=== PATIENT | female | born 1975 | race Caucasian/White ===

== ENCOUNTER 2017-12-14 09:25 | Outpatient (REF) | payer BC, SELFPAY ==
[2017-12-14 21:07] LABS: Bacteria Moderate HPF (Negative); Epithelial Cells Moderate HPF (Negative); RBC Negative (0-2)
[2017-12-14 21:08] LABS: C & S Indicated? C&S Done As Ordered; Casts Negative LPF (Negative); Crystals Moderate Amorphous HPF (Negative); Mucus Moderate (Negative)
== END 2017-12-14 09:26 ==
LOC: NCHCN 09:25
PROVIDERS: PCP Nurse Practitioner Family; Visit Provider Nurse Practitioner Family
DX: R31.9 Hematuria, unspecified (principal)
CPT/HCPCS: 81015; 87086

== ENCOUNTER 2018-12-27 08:49 | Outpatient (REF) | payer BC, SELFPAY ==
[2018-12-27 20:50] LABS: COMMENT (LAB VIEW ONLY) 187.71 mg/dL; Microalb ug/mg Crea 23.4 ug/mg Cr
[2018-12-27 20:53] LABS: ALT 28 U/L (14-59); AST 17 U/L (15-37); Albumin 3.2 g/dL (3.4-5.0); Alkaline Phosphatase 95 U/L (46-116); Anion Gap 10.1 mmol/L (3-11); BUN 13 mg/dL (7-18); Bilirubin, Total 0.2 mg/dL (0.2-1.0); CO2 25.9 mmol/L (21.0-32.0); CREATININE 0.65 mg/dL (0.55-1.02); Calcium 8.7 mg/dL (8.5-10.1); Calculated LDL 85 mg/dL; Chloride 103 mmol/L (98-107); Cholesterol 137 mg/dL (50-200); Glucose 82 mg/dL (70-100); HDL Cholesterol 37 mg/dL (40-60); Potassium 4.1 mmol/L (3.5-5.1); Sodium 139 mmol/L (136-145); TSH 3.28 uIU/mL (0.36-3.74); Total Protein 6.9 g/dL (6.4-8.2); Triglyceride 75 mg/dL (30-150)
== END 2018-12-27 09:09 ==
LOC: NCHCN 08:49
PROVIDERS: PCP Nurse Practitioner Family; Visit Provider Nurse Practitioner Family
DX: E11.9 Type 2 diabetes mellitus without complications (principal); E78.5 Hyperlipidemia, unspecified; R80.9 Proteinuria, unspecified; N64.4 Mastodynia; E66.9 Obesity, unspecified; Z13.29 Encounter for screening for other suspected endocrine disorder
CPT/HCPCS: 80053; 80061; 82043; 82570; 84443

== ENCOUNTER 2019-08-08 21:06 | Outpatient (REF) | payer BC, SELFPAY | END 2019-08-08 21:26 | LOC: NCHCN 21:06 | PROVIDERS: PCP Nurse Practitioner Family; Visit Provider Nurse Practitioner Family | DX: N39.0 Urinary tract infection, site not specified (principal) | CPT/HCPCS: 87077; 87086; 87186 ==

== ENCOUNTER 2019-12-29 14:27 | Outpatient (REF) | payer BC, SELFPAY ==
[2019-12-29 21:27] LABS: Microalb ug/mg Crea 16.5 ug/mg Cr
[2019-12-29 21:33] LABS: Anion Gap 9.3 mmol/L (3-11); BUN 13 mg/dL (7-18); CO2 27.7 mmol/L (21.0-32.0); CREATININE 0.55 mg/dL (0.55-1.02); Chloride 100 mmol/L (98-107); Glucose 79 mg/dL (74-106); Potassium 4.4 mmol/L (3.5-5.1); Sodium 137 mmol/L (136-145); Vitamin B12 298 pg/mL (193-986)
== END 2019-12-29 14:47 ==
LOC: NCHCN 14:27
PROVIDERS: PCP Nurse Practitioner Family; Visit Provider Nurse Practitioner Family
DX: E11.9 Type 2 diabetes mellitus without complications (principal); R80.9 Proteinuria, unspecified; Z51.81 Encounter for therapeutic drug level monitoring
CPT/HCPCS: 80048; 82043; 82570; 82607

== ENCOUNTER 2020-06-26 14:21 | Outpatient (REF) | payer BC, SELFPAY ==
[2020-06-26 15:40] LABS: Anion Gap 11.3 mmol/L (3-11); BUN 14 mg/dL (7-18); CO2 24.7 mmol/L (21.0-32.0); CREATININE 0.6 mg/dL (0.55-1.02); Chloride 102 mmol/L (98-107); Ferritin 13 ng/mL (8-252); Glucose 61 mg/dL (74-106); Potassium 4.2 mmol/L (3.5-5.1); Sodium 138 mmol/L (136-145)
[2020-06-26 15:50] LABS: HCT 34.5 % (36.0-46.0); HGB 10.4 g/dL (11.2-15.7); MCH 21.8 pg (27.0-33.0); MCHC 30.1 % (32.0-36.0); MCV 72.3 fL (80-95); MPV 9.3 fL (8.0-11.0); Platelet Count 421 10^3/uL (130-400); RBC 4.77 10^6/uL (3.93-5.22); RDW 18.8 % (11.7-14.6); RDW-SD 49.2 fL; WBC 8.87 10^3/uL (4.4-10.8)
== END 2020-06-26 14:22 | disposition home or self-care (01) ==
LOC: NCHCN 14:21
PROVIDERS: PCP Nurse Practitioner Family; Visit Provider Nurse Practitioner Family
DX: E11.9 Type 2 diabetes mellitus without complications (principal); R00.0 Tachycardia, unspecified; G47.33 Obstructive sleep apnea (adult) (pediatric); G25.81 Restless legs syndrome
CPT/HCPCS: 80048; 85027; 82728

== ENCOUNTER 2020-08-13 07:52 | Outpatient (REF) | payer BC, SELFPAY ==
[2020-08-13 13:31] LABS: HCT 38.4 % (36.0-46.0); HGB 11.5 g/dL (11.2-15.7); MCH 22.9 pg (27.0-33.0); MCHC 29.9 % (32.0-36.0); MCV 76.5 fL (80-95); MPV 9.5 fL (8.0-11.0); Platelet Count 394 10^3/uL (130-400); RBC 5.02 10^6/uL (3.93-5.22); RDW 21.2 % (11.7-14.6); RDW-SD 57.6 fL; WBC 9.59 10^3/uL (4.4-10.8)
[2020-08-13 13:46] LABS: Ferritin 25 ng/mL (8-252)
== END 2020-08-13 07:53 | disposition home or self-care (01) ==
LOC: NCHCN 07:52
PROVIDERS: PCP Nurse Practitioner Family; Visit Provider Nurse Practitioner Family
DX: D50.9 Iron deficiency anemia, unspecified (principal)
CPT/HCPCS: 85027; 82728

== ENCOUNTER 2021-05-02 14:53 | Outpatient (REF) | payer BC, SELFPAY ==
[2021-05-02 15:00] LABS: HCT 39.7 % (36.0-46.0); HGB 12.4 g/dL (11.2-15.7); MCH 25.3 pg (27.0-33.0); MCHC 31.2 % (32.0-36.0); MPV 9.6 fL (8.0-11.0); Platelet Count 342 10^3/uL (130-400); RDW 16.2 % (11.7-14.6); RDW-SD 47.5 fL; WBC 9.06 10^3/uL (4.4-10.8)
[2021-05-02 15:25] LABS: Iron 46 ug/dL (50-170); Total Iron Binding Capacity 318 ug/dL (250-450); Transferrin Sat 14 % (15-50)
[2021-05-02 15:50] LABS: Hemoglobin A1C 5.8 % (<5.7)
[2021-05-02 16:06] LABS: Anion Gap 8.5 mmol/L (3-11); BUN 18 mg/dL (7-18); CO2 26.5 mmol/L (21.0-32.0); CREATININE 0.6 mg/dL (0.55-1.02); Calcium 8.8 mg/dL (8.5-10.1); Chloride 100 mmol/L (98-107); Ferritin 40 ng/mL (8-252); Glucose 129 mg/dL (74-106); Potassium 4.3 mmol/L (3.5-5.1); Sodium 135 mmol/L (136-145); Vitamin B12 268 pg/mL (193-986)
== END 2021-05-02 14:54 | disposition home or self-care (01) ==
LOC: NCHCN 14:53
PROVIDERS: PCP Nurse Practitioner Family; Visit Provider Nurse Practitioner Family
DX: E11.9 Type 2 diabetes mellitus without complications (principal); Z86.2 Personal history of diseases of the blood and blood-forming organs and certain disorders involving the immune mechanism
CPT/HCPCS: 80048; 85027; 82607; 82728; 83036; 83540; 83550

== ENCOUNTER 2021-05-06 15:21 | Outpatient (REF) | payer BC, SELFPAY | END 2021-05-06 15:22 | disposition home or self-care (01) | LOC: NCHCN 15:21 | PROVIDERS: PCP Nurse Practitioner Family; Visit Provider Nurse Practitioner Family | DX: E11.9 Type 2 diabetes mellitus without complications (principal); E78.5 Hyperlipidemia, unspecified | CPT/HCPCS: 82043; 82570 ==

== ENCOUNTER 2022-05-02 10:17 | Outpatient (REF) | payer BC, SELFPAY ==
[2022-05-02 15:27] LABS: HCT 37.5 % (36.0-46.0); HGB 12.2 g/dL (11.2-15.7); MCH 26.5 pg (27.0-33.0); MCHC 32.5 % (32.0-36.0); MCV 81 fL (80-95); MPV 9.7 fL (8.0-11.0); Platelet Count 320 10^3/uL (130-400); RBC 4.61 10^6/uL (3.93-5.22); RDW 15.8 % (11.7-14.6); RDW-SD 46.5 fL; WBC 10.09 10^3/uL (4.4-10.8)
[2022-05-02 16:25] LABS: Anion Gap 8.5 mmol/L (3-11); BUN 13 mg/dL (7-18); CO2 25.5 mmol/L (21.0-32.0); CREATININE 0.6 mg/dL (0.55-1.02); Calcium 8.8 mg/dL (8.5-10.1); Calculated LDL 44 mg/dL (<100); Chloride 105 mmol/L (98-107); Cholesterol 98 mg/dL (<200); Estimated GFR 113.44 (mL/min/1.73m2); Ferritin 54 ng/mL (8-252); Glucose 101 mg/dL (74-106); HDL Cholesterol 39 mg/dL (40-60); Potassium 3.7 mmol/L (3.5-5.1); Sodium 139 mmol/L (136-145); Triglyceride 75 mg/dL (<150); Vitamin B12 1409 pg/mL (193-986)
[2022-05-02 23:10] LABS: Estimated Average Glucose 126 mg/dL
== END 2022-05-02 10:18 | disposition home or self-care (01) ==
LOC: NCHCN 10:17
PROVIDERS: PCP Nurse Practitioner Family; Visit Provider Nurse Practitioner Family
DX: E53.8 Deficiency of other specified B group vitamins (principal); E11.9 Type 2 diabetes mellitus without complications; D50.9 Iron deficiency anemia, unspecified; E78.5 Hyperlipidemia, unspecified; F17.210 Nicotine dependence, cigarettes, uncomplicated
CPT/HCPCS: 80048; 80061; 85027; 82607; 82728; 83036

== ENCOUNTER 2022-05-05 10:56 | Outpatient (REF) | payer BC, SELFPAY ==
--- NOTE | 2022-05-05 09:00 | PAPFT_PTH ---
PATIENT: Mary Hendricks LOC: [facility]#:[id number] AGE/SX: 46/F ROOM: RE05/05/[address]: Flori Herzog : 1975 BED: DIS: 05/05/2022 SPEC #: [id number] RECD: 05/05/22 17:21 STATUS: CARTER BERKOWITZ #: [id number] CHARLI: 05/05/22 09:[address]: Flori Meehan DEPT: [facility] Cytology RECD BY: Adri Downs ENTERED: 05/05/22 17:22 SP TYPE: PAPFT OTHR DR: Emilia Jain Tissues: 1 - CX/ENDOCX FOR PAP SMEARS Procedures: PAP THIN PREP/[facility] Screening HPV DNA PROBE Comments: [id number] (HPV 16 & 18/45)
[2022-05-05 15:58] LABS: COMMENT (LAB VIEW ONLY) 179.89 mg/dL; Microalb ug/mg Crea 44.1 ug/mg Cr
== END 2022-05-05 10:57 | disposition home or self-care (01) ==
LOC: NCHCN 10:56
PROVIDERS: PCP Nurse Practitioner Family; Visit Provider Nurse Practitioner Family
DX: E11.9 Type 2 diabetes mellitus without complications (principal); Z12.4 Encounter for screening for malignant neoplasm of cervix; Z11.51 Encounter for screening for human papillomavirus (HPV); R87.810 Cervical high risk human papillomavirus (HPV) DNA test positive
CPT/HCPCS: 88142; 82043; 82570; 87624

== ENCOUNTER 2023-04-28 15:51 | Outpatient (REF) | payer BC, SELFPAY ==
[2023-04-28 17:35] LABS: HCT 39.4 % (36.0-46.0); HGB 12.1 g/dL (11.2-15.7); MCH 25.9 pg (27.0-33.0); MCHC 30.7 % (32.0-36.0); MCV 84 fL (80-95); MPV 9.9 fL (8.0-11.0); Platelet Count 311 10^3/uL (130-400); RBC 4.68 10^6/uL (3.93-5.22); RDW 15.9 % (11.7-14.6); RDW-SD 48.3 fL; WBC 9.38 10^3/uL (4.4-10.8)
[2023-04-28 17:51] LABS: ALT 54 U/L (14-59); AST 57 U/L (15-37); Albumin 2.9 g/dL (3.4-5.0); Alkaline Phosphatase 81 U/L (46-116); Anion Gap 6.2 mmol/L (3-11); BUN 14 mg/dL (7-18); Bilirubin, Total 0.4 mg/dL (0.2-1.0); CO2 27.8 mmol/L (21.0-32.0); CREATININE 0.7 mg/dL (0.55-1.02); Calcium 9.4 mg/dL (8.5-10.1); Chloride 102 mmol/L (98-107); Estimated GFR 108.62 (mL/min/1.73m2); Glucose 199 mg/dL (74-106); Potassium 4.4 mmol/L (3.5-5.1); Sodium 136 mmol/L (136-145); Total Protein 7.3 g/dL (6.4-8.2)
[2023-04-28 18:17] LABS: Hemoglobin A1C 8.1 % (<5.7)
== END 2023-04-28 15:52 | disposition home or self-care (01) ==
LOC: NCHCN 15:51
PROVIDERS: PCP Nurse Practitioner Family; Visit Provider Nurse Practitioner Family
DX: Z00.00 Encounter for general adult medical examination without abnormal findings (principal); E11.9 Type 2 diabetes mellitus without complications
CPT/HCPCS: 80053; 85027; 83036

== ENCOUNTER 2023-05-07 10:31 | Outpatient (REF) | payer BC, SELFPAY ==
--- NOTE | 2023-05-07 08:00 | PAPFT_PTH ---
PATIENT: Mary Hendricks LOC: [facility]#:[id number] AGE/SX: 47/F ROOM: RE05/07/[address]: Flori Herzog : 1975 BED: DIS: 05/07/2023 SPEC #: [id number] RECD: 05/07/23 17:38 STATUS: CARTER RENaseem #: [id number] CHARLI: 05/07/23 08:[address]: Flori Meehan DEPT: [facility] Cytology RECD BY: Adri Downs ENTERED: 05/07/23 17:38 SP TYPE: PAPFT OTHR DR: Emilia Jain Tissues: 1 - CX/ENDOCX FOR PAP SMEARS Procedures: PAP THIN PREP/[facility] Screening HPV DNA PROBE Comments: [id number]
[2023-05-07 14:57] LABS: COMMENT (LAB VIEW ONLY) 157.05 mg/dL; Microalb ug/mg Crea 44.8 ug/mg Cr
== END 2023-05-07 10:32 | disposition home or self-care (01) ==
LOC: NCHCN 10:31
PROVIDERS: PCP Nurse Practitioner Family; Visit Provider Nurse Practitioner Family
DX: E11.9 Type 2 diabetes mellitus without complications (principal)
CPT/HCPCS: 88142; 82043; 82570; 87624

== ENCOUNTER 2024-08-16 12:03 | Outpatient (REF) | payer BC, SELFPAY ==
[2024-08-16 14:37] LABS: HCT 39.1 % (36.0-46.0); HGB 12.5 g/dL (11.2-15.7); MCH 26.7 pg (27.0-33.0); MCV 84 fL (80-95); MPV 9.6 fL (8.0-11.0); Platelet Count 283 10^3/uL (130-400); RBC 4.68 10^6/uL (3.93-5.22); RDW-SD 45.5 fL; WBC 9.05 10^3/uL (4.4-10.8)
[2024-08-16 14:53] LABS: Hemoglobin A1C 6.4 % (<5.7)
[2024-08-16 15:01] LABS: ALT 39 U/L (14-59); AST 36 U/L (15-37); Albumin 3.2 g/dL (3.4-5.0); Alkaline Phosphatase 92 U/L (46-116); Anion Gap 8.4 mmol/L (3-11); BUN 17 mg/dL (7-18); Bilirubin, Total 0.3 mg/dL (0.2-1.0); CO2 27.6 mmol/L (21.0-32.0); CREATININE 0.6 mg/dL (0.55-1.02); Calcium 9.2 mg/dL (8.5-10.1); Chloride 105 mmol/L (98-107); Estimated GFR 112.04 (mL/min/1.73m2); Glucose 134 mg/dL (74-106); Potassium 4.4 mmol/L (3.5-5.1); Sodium 141 mmol/L (136-145); TSH 3.07 uIU/mL (0.36-3.74); Total Protein 7.6 g/dL (6.4-8.2)
== END 2024-08-16 12:04 | disposition home or self-care (01) ==
LOC: NCHCN 12:03
PROVIDERS: PCP Nurse Practitioner Family; Visit Provider Nurse Practitioner Family
DX: E11.9 Type 2 diabetes mellitus without complications (principal); D50.9 Iron deficiency anemia, unspecified
CPT/HCPCS: 80053; 85027; 83036; 84443

== ENCOUNTER 2024-08-23 13:04 | Outpatient (REF) | payer BC, SELFPAY ==
--- NOTE | 2024-08-23 08:00 | PAPFT_PTH ---
PATIENT: Mary Hendricks LOC: [facility]#:[id number] AGE/SX: 48/F ROOM: RE08/23/[address]: Flori Herzog : 1975 BED: DIS: 08/23/2024 SPEC #: [id number] RECD: 08/23/24 18:20 STATUS: CARTER RENaseem #: [id number] CHARLI: 08/23/24 08:[address]: Flori Meehan DEPT: [facility] Cytology RECD BY: Adri Downs ENTERED: 08/23/24 18:20 SP TYPE: PAPFT OTHR DR: Emilia Jain Tissues: 1 - CX/ENDOCX FOR PAP SMEARS Procedures: PAP THIN PREP/[facility] Screening HPV DNA PROBE Comments: [id number] (HPV 16 & 18/45)
== END 2024-08-23 13:05 | disposition home or self-care (01) ==
LOC: NCHCN 13:04
PROVIDERS: PCP Nurse Practitioner Family; Visit Provider Nurse Practitioner Family
DX: Z12.4 Encounter for screening for malignant neoplasm of cervix (principal)
CPT/HCPCS: 88142; 87624